=== PATIENT | female | born 1945 | race Caucasian/White ===

== ENCOUNTER 2019-09-03 17:51 | Emergency (ER) | payer MEDICARE ==
[~2019-09-03] VITALS: Ht 154.9 cm; Wt 84.2 kg
[~2019-09-03 17:51] MED LIST: ACID1TAB7 PO; ALBU18HF INH; AMIO200T42 PO; AMLO2.5T2 PO; ATOR-2 PO; CARV3.1212 PO; DOCU-131 PO; FERR-51 PO; FURO-93 PO; LEVO25TA4 PO; METO25TA35 PO; OMEP-110 PO; OXYC-307 PO; POTA10CA PO; TIOT18CA INH; WARF-36 PO
--- NOTE | 2019-09-03 18:10 | NUR ---
Pt to 26 from lobby
--- NOTE | 2019-09-03 18:12 | NUR ---
assumed care of pt. as
--- NOTE | 2019-09-03 18:38 | NUR ---
pt to ed from home w/ family. "My blood pressure was low at home" 95/? and 120/?. sts is usually 120s. sts heart rate was "low". afib 50s. denies dizziness/weakness/sob/CP. here recently for GI bleed and high INR. no longer takes coumadin. A&Ox4 GCS 15. vss. 150/75. awaiting md call chaudhry in reach.
--- NOTE | 2019-09-03 19:11 | NUR ---
lab at bedside, pt made aware of need for UA.
[2019-09-03 19:22] LABS: BASOPHILS # (AUTO) 0.03 x10^3/uL (0-0.1); BASOPHILS % (AUTO) 1 % (0-1); EOSINOPHILS # (AUTO) 0.05 x10^3/uL (0-0.4); EOSINOPHILS % (AUTO) 1 % (1-7); LYMPHOCYTES # (AUTO) 0.92 x10^3/uL (1-3.4); LYMPHOCYTES % (AUTO) 13 % (22-44); MD NO; MEAN CORPUSCULAR HEMOGLOBIN 27.9 pg (27.0-34.8); MEAN CORPUSCULAR HGB CONC 31.2 g/dL (32.4-35.8); MEAN CORPUSCULAR VOLUME 89.6 fL (80-100); MEAN PLATELET VOLUME 8.4 fL (7.4-10.4); MONOCYTES # (AUTO) 0.52 x10^3/uL (0.2-0.8); MONOCYTES % (AUTO) 7 % (2-9); NEUTROPHILS # (AUTO) 5.76 x10^3/uL (1.8-6.8); NEUTROPHILS % (AUTO) 79 % (42-75); PLATELET COUNT 294 x10^3/uL (130-400); RED CELL DISTRIBUTION WIDTH 18.1 % (9.6-15.2)
[2019-09-03 19:30] LABS: ALANINE AMINOTRANSFERASE 26 U/L (12-78); ALBUMIN 3.4 g/dL (3.4-5.0); ANION GAP 6 mmol/L (5-15); CHLORIDE 111 mmol/L (98-107); CREATININE 1.33 mg/dL (0.55-1.02); INTERNATIONAL NORMALIZED RATIO 1.2 (0.93-1.1); PROTHROMBIN TIME 12.5 Seconds (9.6-11.5)
[2019-09-03 19:32] LABS: ALKALINE PHOSPHATASE 81 U/L (45-117); BILIRUBIN,TOTAL 0.8 mg/dL (0.2-1.0); TOTAL PROTEIN 7.3 g/dL (6.4-8.2)
[2019-09-03 19:51] LABS: MICROSCOPIC AUTO
[2019-09-03 19:52] LABS: CULTURE INDICATED? YES
[2019-09-03] MEDS ORDERED: CEFDINIR 300 MG CAPSULE PO ONE (20:00)
[2019-09-03] MEDS ORDERED: CEFDINIR 300 MG CAPSULE ONE (20:06)
[2019-09-03 20:14] VITALS: BP 166/50
== END 2019-09-03 20:27 | disposition home or self-care (01) ==
LOC: ED 19:43
DX: N30.00 Acute cystitis without hematuria (principal); R53.1 Weakness; I10 Essential (primary) hypertension; I48.91 Unspecified atrial fibrillation; E78.5 Hyperlipidemia, unspecified; E03.9 Hypothyroidism, unspecified; J44.9 Chronic obstructive pulmonary disease, unspecified
CPT/HCPCS: 36415; 80053; 81001; 85025; 85610; 85730; 87077; 87086; 87186; 93005; 99284

== ENCOUNTER 2019-09-16 12:57 | Emergency (ER) | payer MEDICARE ==
[~2019-09-16] VITALS: Ht 154.9 cm; Wt 82.9 kg
[2019-09-16] MEDS ORDERED: SODIUM CHLORIDE FLUSH 10ML SYR IVF ONE (13:30)
[2019-09-16 13:58] LABS: BASOPHILS # (AUTO) 0.02 x10^3/uL (0-0.1); BASOPHILS % (AUTO) 0 % (0-1); EOSINOPHILS # (AUTO) 0.02 x10^3/uL (0-0.4); EOSINOPHILS % (AUTO) 0 % (1-7); LYMPHOCYTES # (AUTO) 1.05 x10^3/uL (1-3.4); LYMPHOCYTES % (AUTO) 14 % (22-44); MD NO; MEAN CORPUSCULAR HEMOGLOBIN 27.7 pg (27.0-34.8); MEAN CORPUSCULAR HGB CONC 30.9 g/dL (32.4-35.8); MEAN CORPUSCULAR VOLUME 89.7 fL (80-100); MEAN PLATELET VOLUME 8.3 fL (7.4-10.4); MONOCYTES # (AUTO) 0.32 x10^3/uL (0.2-0.8); MONOCYTES % (AUTO) 4 % (2-9); NEUTROPHILS # (AUTO) 6.16 x10^3/uL (1.8-6.8); NEUTROPHILS % (AUTO) 81 % (42-75); PLATELET COUNT 233 x10^3/uL (130-400); RED BLOOD COUNT 4.03 x10^6/uL (3.82-5.3); RED CELL DISTRIBUTION WIDTH 17.9 % (9.6-15.2)
[2019-09-16 14:03] LABS: INTERNATIONAL NORMALIZED RATIO 1.13 (0.93-1.1)
[2019-09-16 14:06] LABS: ALANINE AMINOTRANSFERASE 18 U/L (12-78); ALBUMIN 3.4 g/dL (3.4-5.0); ANION GAP 8 mmol/L (5-15); CALCIUM 9.1 mg/dL (8.5-10.1); CHLORIDE 108 mmol/L (98-107); CREATININE 1.39 mg/dL (0.55-1.02)
[2019-09-16 14:07] LABS: ALKALINE PHOSPHATASE 73 U/L (45-117); BILIRUBIN,TOTAL 0.8 mg/dL (0.2-1.0); TOTAL PROTEIN 7.1 g/dL (6.4-8.2)
[2019-09-16 14:17] VITALS: BP 163/54
== END 2019-09-16 15:16 | disposition home or self-care (01) ==
LOC: ED 13:31
DX: K92.2 Gastrointestinal hemorrhage, unspecified (principal); I10 Essential (primary) hypertension; J44.0 Chronic obstructive pulmonary disease with (acute) lower respiratory infection; I25.2 Old myocardial infarction; E03.9 Hypothyroidism, unspecified; E78.5 Hyperlipidemia, unspecified; Z87.891 Personal history of nicotine dependence; Z90.49 Acquired absence of other specified parts of digestive tract
CPT/HCPCS: 36415; 80053; 83605; 83690; 85025; 85610; 86850; 86900; 93005; 99284